=== PATIENT | male | born 1975 | race Two or more races ===

== ENCOUNTER 2017-06-10 05:08 | Inpatient (IN) | payer OTHER ==
[2017-06-10] VITALS (13 sets, daily range): BP systolic 121–159; BP diastolic 81–98
[~2017-06-10] VITALS: Ht 193 cm; Wt 99.8 kg
[2017-06-10] MEDS ORDERED: NORCO 10-325 T1 EACH ORAL (05:54)
[2017-06-10] MEDS ORDERED: Surgicel 4in x 8in TOPIC ONE (06:27)
[2017-06-10] MEDS ORDERED: Vancomycin 1gm inj IVPB ONE ×2 (06:27→07:41)
[2017-06-10] MEDS ORDERED: Thrombin 5000 units TOPIC ONE (06:27)
[2017-06-10] MEDS ORDERED: Bupivacaine w/Epi 0.75% 30ml Vial INJ ONE (06:27)
[2017-06-10] MEDS ORDERED: Bacitracin 50000 Units Vial ONE (06:28)
[2017-06-10] MEDS ORDERED: Bupivacaine 0.5% Inj 30 ml vial INJ ONE (06:28)
[2017-06-10] MEDS ORDERED: Vancomycin 1gm/D5W 275ml IVPB ONE ×2 (06:30)
[2017-06-10] MEDS ORDERED: Ketorolac 30mg Inj ONE (07:00)
[2017-06-10] MEDS ORDERED: Sterile Water Irrig 1000ml IRRIG ONE ×2 (07:00)
[2017-06-10] MEDS ORDERED: NS Irrig 1000ml ONE ×2 (07:00)
[2017-06-10] MEDS ORDERED: Metoclopramide 10mg/2ml Inj ONE (07:00)
[2017-06-10] MEDS ORDERED: fentaNYL 100 mcg/2 mL IV ONE (07:00)
[2017-06-10] MEDS ORDERED: Succinylcholine 20mg/ml 10ml vial ONE (07:00)
[2017-06-10] MEDS ORDERED: Zemuron 50mg/5ml Inj IV ONE (07:00)
[2017-06-10] MEDS ORDERED: Glycopyrrolate 0.2mg/ml 1ml Vial ONE (07:00)
[2017-06-10] MEDS ORDERED: LR 1000ml ONE (07:00)
[2017-06-10] MEDS ORDERED: Propofol 200mg/20ml IV ONE (07:00)
[2017-06-10] MEDS ORDERED: Neostigmine 1mg/ml 10ml Inj ONE (07:00)
--- NOTE | 2017-06-10 07:02 | Pre-Procedure Note/Attestation ---
Pre-Procedure Note/Attestation Complete Prior to Procedure Planned Procedure: not applicable Procedure Narrative: Artificial disc replacement of C56, Anterior cervical discectomy and fusion of C67 Indications for Procedure Pre-Operative Diagnosis: Herniation C56,67 Attestation I attest that I discussed the nature of the procedure; its benefits; risks and complications; and alternatives (and the risks and benefits of such alternatives ), prior to the procedure, with the patient (or the patient's legal abrasives sales representative). I attest that, if there was a reasonable possibility of needing a blood transfusion, the patient (or the patient's legal abrasives sales representative) was given the [facility] standardized written summary, pursuant to the [employer] [place] Blood Safety Act ([place] Health and Safety Code # 1645, as amended). I attest that I re-evaluated the patient just prior to the surgery and that there has been no change in the patient's H&P, except as documented below: ORESTES MG Jun 10, 2017 07:02
--- NOTE | 2017-06-10 07:03 | Brief Operative Note ---
Immediate Post Operative Note Operative Note Chief Complaint: Neck pain and radiculopathy Pre-op Diagnosis: Herniation C56,67 Procedure: Artificial disc replacement of C56, Anterior cervical discectomy and fusion of C67 Post-op Diagnosis: same as pre-op Findings: consistent w/pre-op dx studies Surgeon: Taina Patient Sitter: Amara Anesthesia: general Specimen: none Complications: none Condition: stable Estimated Blood Loss: minimal Drains: none Implant(s) used?: Yes - Prodisc C 5, nUvasive interolock C sz 6 ORESTES MG Jun 10, 2017 07:03
[2017-06-10] MEDS ORDERED: HYDROmorphone 1mg/ml Carpuject IVP PRN (07:15)
[2017-06-10] MEDS ORDERED: Chloraseptic Spray 20mL Bottle ORAL PRN (07:15)
[2017-06-10] MEDS ORDERED: Metoclopramide 10mg/2ml Inj IVP PRN ×2 (07:15→07:30)
[2017-06-10] MEDS ORDERED: Norco 5mg/325mg tab ORAL PRN (07:15)
[2017-06-10] MEDS ORDERED: HYDROmorphone 1mg/ml Carpuject SUBQ PRN (07:15)
[2017-06-10] MEDS ORDERED: Milk of Magnesia 30ml Ud ORAL PRN (07:15)
[2017-06-10] MEDS ORDERED: Norco 7.5mg/325mg tab ORAL PRN (07:15)
[2017-06-10] MEDS ORDERED: Naloxone 0.4mg/ml Inj IVP PRN (07:15)
[2017-06-10] MEDS ORDERED: LR 1000ml 1,000 ML IVLG SCH (07:29)
[2017-06-10] MEDS ORDERED: Ketorolac 30mg Inj IV PRN (07:30)
[2017-06-10] MEDS ORDERED: Morphine Sulfate 2mg/ml Inj IVP PRN (07:30)
--- NOTE | 2017-06-10 07:42 | Anethesia Preoperative Eval ---
Anesthesia Pre-op PMH/ROS General Date of Evaluation: Jun 10, 2017 Time of Evaluation: 06:50 Anesthesiologist: Lyla ASA Score: ASA 2 Mallampati Score Class I : Soft palate, uvula, fauces, pillars visible Class II: Soft palate, uvula, fauces visible Class III: Soft palate, base of uvula visible Class IV: Only hard plate visible Mallampati Classification: Class II Surgeon: Taina Diagnosis: Cervical Radiculopathy Surgical Procedure: c567 ACDF Anesthesia History: none Family History: no anesthesia problems Allergies: Coded Allergies: PENICILLINS (Verified Allergy, Unknown, UNKNOWN , 06/10/17) Medications: see eMAR Anesthesia Pre-op Phys. Exam Physician Exam Last Vital Signs Date Time Temp Pulse Resp B/P (MAP) Pulse Ox O2 Delivery O2 Flow Rate FiO2 06/10/17 05:52 97.9 72 19 121/82 97 Room Air Constitutional: NAD Neurologic: CN 2-12 intact Cardiovascular: RRR Respiratory: CTA Gastrointestinal: S/NT/ND Airway Exam Mallampati Score: Class II MO: full ROM: full Teeth: intact Anesthesia Pre-op A/P Risk Assessment & Plan Plan: GA Status Change Before Surgery: No Pre-Antibiotics Given Within 1 Hr of Incision: Yes Time Given: 07:00 Miah Arita M.D. Jun 10, 2017 07:42
--- NOTE | 2017-06-10 07:46 | Immediate Post-Op Evaluation ---
Immediate Post-Op Evalulation Immediate Post-Op Evalulation Procedure: C567 ACDF Date of Evaluation: Jun 10, 2017 Time of Evaluation: 11:00 IV Fluids: 1000 Blood Products: 0 Estimated Blood Loss: 30 Urinary Output: 100 Blood Pressure Systolic: 135 Blood Pressure Diastolic: 72 Pulse Rate: 70 Respiratory Rate: 14 O2 Sat by Pulse Oximetry: 99 Temperature (Fahrenheit): 97.3 Pain Score (1-10): 0 Nausea: No Vomiting: No Patient Status: awake, reacts, patent, extubated Hydration Status: adequate Drug: Vanco Given Within 1 Hr of Incision: Yes Time Given: 07:00 Miah Arita M.D. Jun 10, 2017 07:45
--- NOTE | 2017-06-10 07:47 | 48 Hour Post Anesthesia Eval ---
Post Anesthesia Evaluation Procedure: C567 ACDF Date of Evaluation: Jun 12, 2017 Time of Evaluation: 08:00 Blood Pressure Systolic: 135 Pulse Rate: 78 Respiratory Rate: 15 Temperature (Fahrenheit): 98 O2 Sat by Pulse Oximetry: 99 Airway: patent Nausea: No Vomiting: No Hydration Status: adequate Mental Status/LOC: patient returned to baseline Follow-up care needed: patient intructions given Miah Arita M.D. Jun 10, 2017 07:47
[2017-06-10] MEDS ORDERED: Acetaminophen (Non formulary) 100 ML IV ONE (08:00)
[2017-06-10] MEDS ORDERED: Midazolam 2mg/2ml Inj ONE (09:20)
[2017-06-10] MEDS: Hydromorphone 0.5mg/0.5ml inj IVP PRN ×4 (09:27→10:17)
[2017-06-10] MEDS ORDERED: Midazolam 2mg/2ml Inj IVP ONE (09:30)
[2017-06-10] MEDS: fentaNYL 100 mcg/2 mL IV PRN ×2 (09:31→09:52)
[2017-06-10] MEDS ORDERED: DiphenhydrAMINE 50mg/ml Inj ONE (10:05)
[2017-06-10] MEDS ORDERED: DiphenhydrAMINE 50mg/ml Inj IVP ONE (10:15)
[2017-06-10] MEDS: Docusate 100mg cap ORAL SCH ×2 (11:23→17:54)
[2017-06-10] MEDS: Dexamethasone 4mg/ml vial IVP SCH ×3 (11:24→23:41)
--- NOTE | 2017-06-10 12:15 | Diagnostic Imaging Report ---
Indication: PAIN in the neck and right upper extremity, intraoperative Technique: Intraoperative images Comparison: None Findings: Initial image demonstrates surgical tool projected at the anterior aspect of the 67 disc. Subsequent images demonstrate anterior fusion at C6-7, placement of a disc prosthesis at C5-6 Impression: Intraoperative imaging, as described
[2017-06-10] MEDS: NS w/KCl 20mEq 1,000 ML IV SCH ×2 (12:26→22:00)
--- NOTE | 2017-06-10 22:28 | Consultation ---
History of Present Illness General Date patient seen: Jun 10, 2017 Time patient seen: 14:00 Chief Complaint: intractable neck pain w/ radiculopathy Referring physician: Dr. Her Reason for Consultation: medical mgmt Present Illness HPI 42y/o male with intractable neck pain 2/2 cervical disc herniation w/ cervical radiculopathy who presents s/p artificial disc replacement of C56, Anterior cervical discectomy and fusion of C67 on 06/10/17. Postop pain appears well controlled. Denies f/c, n/v, d/c, chest pain, SOB Allergies: Coded Allergies: PENICILLINS (Verified Allergy, Unknown, UNKNOWN , 06/10/17) Medication History Scheduled PRN Hydrocodone Bit/Acetaminophen 10-325* ([place] 10-325*), 1 TAB ORAL Q6H PRN for For Pain, (Reported) Patient History History Provided By: Medical Record, PMD Healthcare decision maker Resuscitation status Full Code Advanced Directive on File No Past Medical/Surgical History Past Medical/Surgical History: (1) HNP (herniated nucleus pulposus), cervical Family History Family History: (1) No significant family history Social History Social History: (1) No significant social history Review of Systems ROS Narrative CONSTITUTIONAL: No weight loss, fever, chills, weakness or fatigue. HEENT: Eyes: No visual loss, blurred vision, double vision or yellow sclerae. Ears, Nose, Throat: No hearing loss, sneezing, congestion, runny nose or sore throat. SKIN: No rash or itching. CARDIOVASCULAR: No chest pain, chest pressure or chest discomfort. No palpitations or edema. RESPIRATORY: No shortness of breath, cough or sputum. GASTROINTESTINAL: No anorexia, nausea, vomiting or diarrhea. No abdominal pain or blood. NEUROLOGICAL: No headache, dizziness, syncope, paralysis, ataxia, numbness or tingling in the extremities. No change in bowel or bladder control. MUSCULOSKELETAL: No muscle, back pain, joint pain or stiffness. HEMATOLOGIC: No anemia, bleeding or bruising. LYMPHATICS: No enlarged nodes. No history of splenectomy. PSYCHIATRIC: No history of depression or anxiety. ENDOCRINOLOGIC: No reports of sweating, cold or heat intolerance. No polyuria or polydipsia. ALLERGIES: No history of asthma, hives, eczema or rhinitis. Physical Exam Physical Exam Narrative General: alert, cooperative, no distress, appears stated age Head: normocephalic, without obvious abnormality, atraumatic Eyes: conjunctivae/corneas clear. PERRL, EOM's intact Throat: lips, mucosa, and tongue normal. MMM Neck: supple, symmetrical, trachea midline, and no JVD Lungs: clear to auscultation bilaterally Heart: regular rate and rhythm, S1, S2 normal, no murmur, click, rub or gallop Abdomen: soft, non-tender, non-distended, bowel sounds normal; no masses or organomegaly Extremities: extremities normal, atraumatic, no cyanosis or edema Pulses: 2+ and symmetric Skin: skin color, texture, turgor normal; no rashes or lesions Dressing c/d/i Neurologic: grossly normal, no focal deficits Last 24 Hour Vital Signs Date Time Temp Pulse Resp B/P (MAP) Pulse Ox O2 Delivery O2 Flow Rate FiO2 06/10/17 20:11 98.1 98 19 153/93 94 Room Air 06/10/17 16:00 98.9 92 18 148/88 97 Room Air 06/10/17 11:30 97.5 80 16 145/88 98 Room Air 06/10/17 10:30 97.6 06/10/17 10:30 97.6 72 15 151/89 100 Nasal Cannula 3.0 06/10/17 10:22 97.6 06/10/17 10:15 72 19 159/92 100 Nasal Cannula 3.0 06/10/17 10:00 68 20 141/98 100 Nasal Cannula 3.0 06/10/17 09:52 63 15 150/87 100 Nasal Cannula 3.0 06/10/17 09:44 61 16 140/81 100 Nasal Cannula 3.0 06/10/17 09:31 60 21 144/84 100 Nasal Cannula 3.0 06/10/17 09:27 57 16 136/95 100 Nasal Cannula 3.0 06/10/17 09:22 59 21 138/82 100 Nasal Cannula 3.0 06/10/17 09:17 97.0 57 12 135/81 100 Nasal Cannula 3.0 06/10/17 07:47 78 15 99 06/10/17 07:45 70 14 99 06/10/17 05:52 97.9 72 19 121/82 97 Room Air Intake and Output 06/10/17 06/11/17 19:00 07:00 Intake Total 2390 ml Output Total 530 ml Balance 1860 ml Intake Oral 790 ml IV Total 1600 ml Output Urine Total 500 ml Estimated Blood Loss 30 ml # Voids 4 Height (Feet): 6 Height (Inches): 4.00 Weight (Pounds): 220 Medications Current Medications Medications (Trade) Dose Ordered Sig/Rob Route PRN Reason Start Time Stop Time Status Last Admin Dose Admin Acetaminophen (Tylenol) 650 mg Q4H PRN ORAL headache or temp>101 06/10/17 07:15 07/10/17 07:14 Acetaminophen/ Hydrocodone Bitart ([place] 5/325) 1 tab Q3H PRN ORAL pain score 1-3 06/10/17 07:15 06/17/17 07:14 Acetaminophen/ Hydrocodone Bitart ([place] 7.5/325) 1 ea Q3H PRN ORAL pain score 4-6 06/10/17 07:15 06/17/17 07:14 Acetaminophen/ Hydrocodone Bitart ([place] 7.5/325) 2 ea Q3H PRN ORAL pain scale 7-10 06/10/17 07:15 06/17/17 07:14 Carisoprodol (Soma) 350 mg TIDPRN PRN ORAL SPASM 06/10/17 07:15 07/10/17 07:14 06/10/17 19:48 Cetylpyridinium Chloride (Cepacol) 1 lozenge EVERY 2 HOURS PRN YVONNE To Patient Comfort 06/10/17 07:15 07/10/17 07:14 06/10/17 19:47 Dexamethasone Sodium Phosphate (Decadron 4mg/ml vial) 4 mg Q6HR IVP 06/10/17 12:00 06/11/17 06:01 06/10/17 17:54 Docusate Sodium (Colace) 100 mg TWICE A DAY ORAL 06/10/17 12:00 07/10/17 11:59 06/10/17 17:54 Hydromorphone HCl (Dilaudid) 1 mg Q2H PRN IVP Breakthrough Pain 06/10/17 07:15 06/17/17 07:14 Hydromorphone HCl (Dilaudid) 1 mg Q4H PRN SUBQ Mild Pain (Pain Scale 1-3) 06/10/17 07:15 06/17/17 07:14 Hydromorphone HCl (Dilaudid) 2 mg Q3H PRN SUBQ Severe Pain (Pain Scale 7-10) 06/10/17 07:15 06/17/17 07:14 06/10/17 15:52 Hydromorphone HCl (Dilaudid) 2 mg Q4H PRN SUBQ Moderate Pain (Pain Scale 4-6) 06/10/17 07:15 06/17/17 07:14 06/10/17 17:59 Magnesium Hydroxide (Mom) 30 ml QIDPRN PRN ORAL Constipation 06/10/17 07:15 07/10/17 07:14 Metoclopramide HCl (Reglan) 10 mg Q6H PRN IVP Nausea & Vomiting 06/10/17 07:15 07/10/17 07:14 Naloxone HCl (Narcan) 0.1 mg PRN PRN IVP RR<12/min, pt unarousable 06/10/17 07:15 07/10/17 07:14 Ondansetron HCl (Zofran) 4 mg Q6H PRN IVP Nausea & Vomiting 06/10/17 07:15 07/10/17 07:14 Phenol/Menthol (Chloraseptic) 1 spray Q3H PRN ORAL To Patient Comfort 06/10/17 07:15 07/10/17 07:14 06/10/17 15:59 Prochlorperazine (Compazine) 10 mg Q6H PRN IVP Nausea & Vomiting 06/10/17 07:15 07/10/17 07:14 06/10/17 15:50 Sodium Chloride 1,000 ml @ 100 mls/hr Q10H IV 06/10/17 12:00 07/10/17 11:59 06/10/17 12:26 Temazepam (Restoril) 15 mg HSPRN PRN ORAL Insomnia 06/10/17 07:15 06/17/17 07:14 Assessment/Plan Problem List: (1) HNP (herniated nucleus pulposus), cervical ICD Codes: M50.20 - Other cervical disc displacement, unspecified cervical region SNOMED: [id number] Status: stable Assessment/Plan s/p artificial disc replacement of C56, Anterior cervical discectomy and fusion of C67 on 06/10/17 Post operative recommendations include: - encourage mobilization/ambulation - encourage incentive spirometry to optimize pulmonary hygiene - DVT/GI prophylaxis as appropriate - PT/OT - pain control, supportive care, bowel regimen - DC planning D/w pt, RN, surgery regarding mgmt and dispo JuanJ Gordillo M.D. Jun 10, 2017 22:28
[2017-06-11] VITALS: BP 141/86
[2017-06-11 04:30] VITALS: BP 146/93
[2017-06-11] MEDS: Dexamethasone 4mg/ml vial IVP SCH (05:42)
[2017-06-11] MEDS: NS w/KCl 20mEq 1,000 ML IV SCH (08:00)
[2017-06-11 08:10] VITALS: BP 139/87
[2017-06-11] MEDS: Docusate 100mg cap ORAL SCH (08:34)
[2017-06-11] MEDS: Norco 7.5mg/325mg tab ORAL PRN ×2 (08:34→12:38)
[2017-06-11 12:08] VITALS: BP 136/87
[2017-06-11 16:00] VITALS: BP 134/90
--- NOTE | 2017-06-11 17:30 | Discharge Summary ---
DATE OF ADMISSION: 06/10/2017 DATE OF DISCHARGE: 06/11/2017 PROCEDURE PERFORMED DURING ADMISSION: 1. Anterior cervical diskectomy and fusion cervical 6-7. 2. Artificial disk replacement cervical 5-6. REASON FOR ADMISSION: Herniated nucleus pulposus, cervical 5-6 and 6-7. HOSPITAL COURSE/TREATMENT RENDERED: DISCHARGE PHYSICAL EXAM: 1. Patient was ambulating with and without the assistance of physical therapy 2. Prior to discharge home incision was clean and dry with minimal swelling 3. Follows commands 4. Alert and oriented 5. Romano discontinued, voiding 6. Incentive spirometer at bedside 7. IVF hep locked MOTOR: Demonstrates expected postoperative bulk and tone. Moves biceps, triceps, and deltoid musculature on command. Moves hip flexors, quadriceps, tibialis anterior, EHL, gastrocsoleus musculature on command as well. TREATMENT RENDERED: 1. Daily nursing care 2. Physical Therapy 3. Occupational Therapy 4. Intravenous medications 5. Oral medications 6. Daily postoperative examinations by Spine surgery team CONDITION OF PATIENT ON DISCHARGE: The condition on discharge is stable for discharge to home DISCHARGE INSTRUCTIONS: Our specific instructions relating to physical activity, medications diet and follow-up care are detailed in our standard operative folder and were given to this patient prior to surgery. We will however summarize these briefly as stated below. Regarding physical activity we would like the patient to limit their flexion, extension and rotation. We also require a limitation on their bending lifting and twisting. All medication has been called in prior to surgery to their pharmacy of choice. They can resume their regular diet once tolerated. We would like them to shower and limit soaking the wound in a tub/Jacuzzi/the ocean for a period of one month or until the incision is completely healed. We will have them follow up in our office in three weeks time for their regularly scheduled appointment. They understand to call our office tomorrow to schedule the time for their three week followup appointment. The patient will notify us should they experience any increase in the severity of pain, redness/swelling/ or drainage from their incision. Silvia Maki PP/DIMITRI JOB#: [id number] CC:
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
--- NOTE | 2017-06-13 13:43 | General Progress Note ---
Assessment/Plan Problem List: (1) HNP (herniated nucleus pulposus), cervical ICD Codes: M50.20 - Other cervical disc displacement, unspecified cervical region SNOMED: [id number] Status: stable Assessment/Plan s/p artificial disc replacement of C56, Anterior cervical discectomy and fusion of C67 on 06/10/17 Post operative recommendations include: - encourage mobilization/ambulation - encourage incentive spirometry to optimize pulmonary hygiene - DVT/GI prophylaxis as appropriate - PT/OT - pain control, supportive care, bowel regimen - DC planning--medically stable for d/c today D/w pt, RN, surgery regarding mgmt and dispo Subjective Date patient seen: Jun 11, 2017 Time patient seen: 11:00 ROS Limited/Unobtainable: No HEENT: Reports: no symptoms Cardiovascular: Reports: no symptoms Respiratory: Reports: no symptoms Gastrointestinal/Abdominal: Reports: no symptoms Genitourinary: Reports: no symptoms Neurologic/Psychiatric: Reports: no symptoms Endocrine: Reports: no symptoms Hematologic/Lymphatic: Reports: no symptoms Allergies: Coded Allergies: PENICILLINS (Verified Allergy, Unknown, UNKNOWN , 06/10/17) Subjective Pain controlled Ambulating Passing gas Denies f/c, n/v, d/c, chest pain, SB Objective Height (Feet): 6 Height (Inches): 4.00 Weight (Pounds): 220 Objective General: alert, cooperative, no distress, appears stated age Head: normocephalic, without obvious abnormality, atraumatic Eyes: conjunctivae/corneas clear. PERRL, EOM's intact Throat: lips, mucosa, and tongue normal. MMM Neck: supple, symmetrical, trachea midline, and no JVD Lungs: clear to auscultation bilaterally Heart: regular rate and rhythm, S1, S2 normal, no murmur, click, rub or gallop Abdomen: soft, non-tender, non-distended, bowel sounds normal; no masses or organomegaly Extremities: extremities normal, atraumatic, no cyanosis or edema Pulses: 2+ and symmetric Skin: skin color, texture, turgor normal; no rashes or lesions Dressing c/d/i Neurologic: grossly normal, no focal deficits Juan J Gordillo M.D. Jun 13, 2017 13:43
== END 2017-06-11 17:29 | disposition home or self-care (01) | DRG 473 ==
LOC: SDSOVERFLO 05:08 → 3E 11:00
DX: M50.122 Cervical disc disorder at C5-C6 level with radiculopathy (principal); M48.02 Spinal stenosis, cervical region; Z88.0 Allergy status to penicillin; F17.200 Nicotine dependence, unspecified, uncomplicated; V89.2XXS Person injured in unspecified motor-vehicle accident, traffic, sequela
CPT/HCPCS: 36415; 72040; 76001; 82962; 86850; 86900; 86901; 87081; 94003; 94150; J2250; J2405; J2710; J2765